=== PATIENT | male | born 1960 | race Two or more races ===

== ENCOUNTER 2017-10-20 13:26 | Emergency (ER) | payer MEDICARE, OTHER ==
[~2017-10-20] VITALS: Ht 170.2 cm; Wt 77.1 kg
[~2017-10-20 13:26] MED LIST: ASPI-667 PO; CHOL100011 PO; INSU100V14 SQ; INSU100V8 SQ; LOSA50TA6 PO; MULT-16 PO; MYCO360T PO; PANT40TA5 PO; PRED5TAB PO; TACR1CAP4 PO
[2017-10-20 13:43] VITALS: BP 156/74
--- NOTE | 2017-10-20 13:45 | NUR ---
TRIAGE BROUGHT TO ROOM 7 AND MONITORS APPLIED. PATIENT HERE WITH C/O FEVER, COUGHING, AND FEELING BAD X 3 DAYS. PATIENT IS DIABETIC AND LAST BLOOD SUGAR READING WAS 170 THIS MORNING. HE STATES THAT THIS IS A LITTLE HIGH FOR HIM. FAMILY X 1 IN THE ROOM. RESP EVEN AND NON-LABORED. NOTIFIED DOCTOR OF PATIENT'S ARRIVAL. LW
--- NOTE | 2017-10-20 14:26 | ER.PDOC ---
General Chief Complaint: Cough/Congestion Stated Complaint: FEVER,COUGH/CONGESTION Time seen by MD: 14:25 Source: patient Exam Limitations: no limitations History of Present Illness Initial Comments Flu-like symptoms for 2 days Timing/Duration: abrupt Associated Symptoms: fever/chills, runny nose, sore throat, cough Allergies: Coded Allergies: No Known Allergies (Unverified , 09/01/13) Home Meds Reported Medications Insulin Aspart (NOVOLOG) 100 Unit/1 Ml Vial, SQ BIDAC Y for HYPERGLYCEMIA, VIAL SLIDING SCALE 05/05/15 Insulin Glargine,Hum.rec.anlog (LANTUS) 100 Unit/1 Ml Vial, 34 UNIT SQ DAILY, VIAL 05/05/15 Mycophenolate Sodium (MYFORTIC) 360 Mg Tablet.dr, 360 MG PO HS 05/05/15 Mycophenolate Sodium (MYFORTIC) 360 Mg Tablet.dr, 720 MG PO DAILY 05/05/15 Tacrolimus (PROGRAF) 1 Mg Capsule, 1 MG PO HS, CAPSULE 05/05/15 Cholecalciferol (Vitamin D3) (VITAMIN D) 1,000 Unit Capsule, 5000 UNIT PO WEEKLY , CAPSULE 04/18/15 Losartan Potassium (LOSARTAN POTASSIUM) 50 Mg Tablet, 50 MG PO DAILY, TABLET 04/18/15 Multivitamin (DAILY VITAMIN) 1 Each Tablet, 1 EACH PO 09/01/13 Prednisone (PREDNISONE) 5 Mg Tablet, 5 MG PO DAILY 09/01/13 Aspirin (ASPIRIN) 81 Mg Tab.chew, 81 MG PO DAILY, TAB.CHEW 09/01/13 Tacrolimus (PROGRAF) 1 Mg Capsule, 2 MG PO DAILY 09/01/13 Pantoprazole Sodium (PANTOPRAZOLE SODIUM) 40 Mg Tablet.dr, 40 MG PO DAILY 09/01/13 Constitutional: see HPI EENTM: see HPI Respiratory: see HPI Cardiovascular: no symptoms reported Gastrointestinal: no symptoms reported Genitourinary: no symptoms reported All Other Systems: Reviewed and Negative Past Medical History Medical History: diabetes, renal disease Surgical History: cholecystectomy Social History Smoking: non-smoker Alcohol Use: none Drug Use: none Physical Exam General Appearance: alert, no distress Ear: ear nml Nose: rhinorrhea Throat: pharynx nml, airway nml Neck: nml inspection, supple Respiratory: no resp.distress, breath sounds nml Abdomen: non-tender, no organomegaly CVS: reg rate & rhythm, heart sounds nml Skin: color nml, no rash, warm/dry Extremities: non-tender, nml ROM, no pedal edema NEURO/PSYCH: oriented x 3, CN's nml as tested, motor nml, sensation nml, mood/ affect nml Results/Orders Results/Orders Laboratory Tests Test 10/20/17 14:24 Influenza Virus Type A Antibody NEGATIVE (NEG) Influenza Virus Type B Antibody NEGATIVE (NEG) Group A Streptococcus Screen NEGATIVE (NEGATIVE) Departure Time of Disposition: 15:00 Disposition: 01 HOME, SELF-CARE Impression: Primary Impression: Acute URI Condition: Stable Referrals: CHAS PALENCIA (PCP) PRIMARY CARE PROVIDER Additional Instructions: Robitussin OTC as directed Tylenol F/U with your PCP in 3-4 days Duration or Time Spent with Pa: 60 mins RAH CHAPIN MD Oct 20, 2017 14:26
[2017-10-20 14:37] LABS: STREP SCREEN NEGATIVE (NEGATIVE)
[2017-10-20 15:09] VITALS: BP 137/77
== END 2017-10-20 15:07 | disposition home or self-care (01) ==
LOC: ER 13:26
DX: J06.9 Acute upper respiratory infection, unspecified (principal); E11.9 Type 2 diabetes mellitus without complications; Z79.4 Long term (current) use of insulin; Z79.82 Long term (current) use of aspirin; Z90.49 Acquired absence of other specified parts of digestive tract; Z79.899 Other long term (current) drug therapy
CPT/HCPCS: 86710; 87880; 99284